=== PATIENT | male | born 1955 | race Caucasian/White ===

== ENCOUNTER → 2016-12-20 | Outpatient (CLI) | payer OTHER, MEDICARE ==
[~2016-12-20] MED LIST: ADDERALL XR 1515 MG PO; ATORVASTATIN CA80 MG PO; CLONAZEPAM1 MG PO; CLONAZEPAM2 MG PO; CLOPIDOGREL75 MG PO; COUMADIN7.5 MG PO; DELTASONE20 M1 PO; DESYREL 150 MG150 MG PO; DULOXETINE HCL30 MG PO; FLEXERIL10 MG PO; FLONASE16 G1 BOTH NARES; FLUOXETINE HCL40 MG PO; LEVAQUIN500 MG PO; LEVITRA20 MG PO; LIDODERM 5% P1 PATCH TD; LISINOPRIL20 MG PO; LISINOPRIL40 MG PO; METAXALONE800 MG PO; OXYCODONE HCL10 MG PO; PANTOPRAZOLE SO40 MG PO; PERCOCET 5/31 TABLET PO; PRILOSEC20 MG PO; PROZAC20 MG PO; VITAMIN D35000 UNIT PO; WELLBUTRIN XL150 MG PO
== END | disposition home or self-care (01) ==
LOC: AMB 12:38
DX: M51.26 Other intervertebral disc displacement, lumbar region (principal); M48.06 Spinal stenosis, lumbar region; Z98.1 Arthrodesis status
CPT/HCPCS: 62304; 72132

== ENCOUNTER 2017-03-07 05:44 | Day surgery (SDC) | payer OTHER, MEDICARE ==
[~2017-03-07] VITALS: Ht 182.9 cm; Wt 92.5 kg
[~2017-03-07 05:44] MED LIST changes: +ASCORBIC ACID100 MG PO; +ASPIRIN81 M2 PO; +DESYREL100 MG PO; +KLONOPIN1 MG PO; +LISINOPRIL10 MG PO; +VITAMIN B122500 MC1 PO; +VITAMIN D33000 UNIT PO
[2017-03-07 06:08] VITALS: BP 151/83
[2017-03-07 07:39] LABS: PROTHROMBIN TIME 10.6 (9.2-11.2); PTT 26.6 (25-32)
[2017-03-07 08:01] LABS: METH RESISTANT S AUREUS PCR NEGATIVE (NEGATIVE)
[2017-03-07 08:02] LABS: PROBE CHECK PASS; SPECIMEN PROCESSING CONTROL PASS
[2017-03-07 10:53] VITALS: BP 164/86
[2017-03-07 12:00] VITALS: BP 156/89
== END 2017-03-07 12:08 | disposition home or self-care (01) ==
LOC: SDC 05:44
PROVIDERS: Neurological Surgery
PROC: 00NY0ZZ Release Lumbar Spinal Cord, Open Approach (ICD-10-PCS; principal; 2017-03-07)
DX: M48.06 Spinal stenosis, lumbar region (principal); M47.26 Other spondylosis with radiculopathy, lumbar region; G96.8 Other specified disorders of central nervous system; Z98.1 Arthrodesis status; F41.9 Anxiety disorder, unspecified; F32.9 Major depressive disorder, single episode, unspecified; R42 Dizziness and giddiness; Z86.14 Personal history of Methicillin resistant Staphylococcus aureus infection; Z86.19 Personal history of other infectious and parasitic diseases; Z87.891 Personal history of nicotine dependence; Z82.49 Family history of ischemic heart disease and other diseases of the circulatory system; Z82.3 Family history of stroke; Z82.0 Family history of epilepsy and other diseases of the nervous system; Z88.0 Allergy status to penicillin
CPT/HCPCS: 72020; 76000; 85002; 85610; 85730; 87641; J0131; J1100; J1170; J2250; J2405; J2710; J2930; J3010; J3370; S0020

== ENCOUNTER 2017-06-08 13:27 | Emergency (ER) | payer OTHER, MEDICARE ==
[~2017-06-08] VITALS: Ht 182.9 cm; Wt 91.8 kg
[2017-06-08 14:32] LABS: HEMATOCRIT 35.2 % (38.0-50.0); MCHC 30.4 G/DL (30.0-36.0); MCV 79.1 FL (86-99); MEAN PLAT.VOLUME 9.6 uM^3 (9.0-12.4); PLATELET COUNT 134 K/uL (156-360); RBC DIS.WIDTH-CV 15.3 % (11.8-14.6); RBC DIS.WIDTH-SD 43.2 % (39-53); RED BLOOD COUNT 4.45 M/uL (4.00-5.50); WHITE BLOOD COUNT 3.9 K/uL (4.1-10.2)
[2017-06-08 14:43] LABS: CHLORIDE 102 mEq/L (99-109); POTASSIUM 4.9 mEq/L (3.7-5.4); SODIUM 135 mEq/L (136-147)
[2017-06-08 14:45] LABS: GLUCOSE 100 mg/dL (70-99)
[2017-06-08 14:46] LABS: ANION GAP 9 MEQ/L (2-14)
[2017-06-08 14:49] LABS: GFR ESTIMATE (CALCULATED) > 59 mL/min/; UREA NITROGEN (BUN) 20 mg/dL (9-23)
[2017-06-08 19:30] VITALS: BP 131/76
== END 2017-06-08 19:31 | disposition home or self-care (01) ==
LOC: EME 13:27
DX: I95.9 Hypotension, unspecified (principal); R42 Dizziness and giddiness; R10.9 Unspecified abdominal pain; R19.5 Other fecal abnormalities; K57.30 Diverticulosis of large intestine without perforation or abscess without bleeding; I10 Essential (primary) hypertension; Z95.5 Presence of coronary angioplasty implant and graft; Z86.718 Personal history of other venous thrombosis and embolism; Z79.02 Long term (current) use of antithrombotics/antiplatelets; Z87.891 Personal history of nicotine dependence
CPT/HCPCS: 74177; 80048; 85027; 86900; 86901; 93005; 99281; 99284; J7030

== ENCOUNTER 2017-10-29 11:18 | Emergency (ER) | payer OTHER, MEDICARE | END 2017-10-29 11:30 | disposition left against medical advice (07) | LOC: EME 11:18 | DX: F41.9 Anxiety disorder, unspecified (principal); Z53.21 Procedure and treatment not carried out due to patient leaving prior to being seen by health care provider ==

== ENCOUNTER 2018-04-04 12:15 | Emergency (ER) | payer OTHER ==
[~2018-04-04] VITALS: Ht 185.4 cm; Wt 87.5 kg
[2018-04-04 15:33] LABS: CHLORIDE 101 mEq/L (99-109); SODIUM 138 mEq/L (136-147)
[2018-04-04 15:35] LABS: GLUCOSE 113 mg/dL (70-99)
[2018-04-04 15:39] LABS: CREATININE 1.1 mg/dL (0.6-1.3); GFR ESTIMATE (CALCULATED) > 59 mL/min/ (58.99-99999); UREA NITROGEN (BUN) 11 mg/dL (9-23)
[2018-04-04 15:40] LABS: HEMATOCRIT 35.1 % (38.0-50.0); HEMOGLOBIN 10.6 G/DL (12.5-16.6); MCH 22.6 PG (29.0-34.0); MCHC 30.2 G/DL (30.0-36.0); MCV 74.8 FL (86-99); PLATELET COUNT 204 K/uL (156-360); RBC DIS.WIDTH-SD 48.1 % (39-53); RED BLOOD COUNT 4.69 M/uL (4.00-5.50); WHITE BLOOD COUNT 5.8 K/uL (4.1-10.2)
[2018-04-04 16:00] LABS: ERTH.SED.RATE 19 MM/HR (0-20)
[2018-04-04] MEDS ORDERED: NAPROSYN500 MG PO (16:08)
[2018-04-04] MEDS ORDERED: BACTROBAN OINTM22 GM TP (16:09)
[2018-04-04 16:10] LABS: HIGH-SENS C-REACTIVE PROTEIN 0.23 MG/DL (0.02-0.20)
[2018-04-04 16:37] VITALS: BP 128/74
== END 2018-04-04 16:38 | disposition home or self-care (01) ==
LOC: EME 12:15
PROVIDERS: Nurse Practitioner Family
DX: M79.604 Pain in right leg (principal); S80.811A Abrasion, right lower leg, initial encounter; W29.8XXA Contact with other powered hand tools and household machinery, initial encounter; Y93.89 Activity, other specified; Y92.480 Sidewalk as the place of occurrence of the external cause; Y92.008 Other place in unspecified non-institutional (private) residence as the place of occurrence of the external cause; F17.200 Nicotine dependence, unspecified, uncomplicated; Z86.718 Personal history of other venous thrombosis and embolism; Z95.5 Presence of coronary angioplasty implant and graft; Z88.0 Allergy status to penicillin
CPT/HCPCS: 73564; 73590; 80048; 85027; 85651; 86141; 99281; 99284